=== PATIENT | male | born 1990 | race Caucasian/White ===

== ENCOUNTER 2023-12-15 15:23 | Emergency (ER) | payer OTHER ==
[~2023-12-15] VITALS: Ht 177.8 cm; Wt 76.4 kg
[~2023-12-15 15:23] MED LIST: ZOFRAN 4MG T4 MG/TAB PO
[2023-12-15 15:26] VITALS: TEMP 97.7
[2023-12-15 16:25] LABS: BASO % 0.5 % (0.0-2.0); EOS # 0.3 K/mm3 (0.0-0.7); EOS % 4.6 % (0.0-4.0); GRAN # 3.7 K/mm3 (1.4-6.5); GRAN % 63.7 % (42.2-75.2); HEMOGLOBIN 13.3 g/dl (13.5-18.0); LYMPH # 1.4 K/mm3 (1.2-3.4); LYMPH % 23.5 % (20.0-51.0); MEAN CELL VOLUME 85 fl (80.0-100.0); MEAN CORPUSCULAR HEMOGLOBIN 28 pg (27-31); MEAN CORPUSCULAR HGB CONC 33 g/dl (33.0-37.0); MEAN PLATELET VOLUME 10.1 fl (7.4-10.4); MONO # 0.4 K/mm3 (0.1-0.6); MONO % 7.2 % (1.7-9.3); PLATELET COUNT 232 K/mm3 (130-400); REDCELL DISTRIBUTION WIDTH-CV 13.3 % (11.5-14.5)
[2023-12-15 16:50] LABS: ALBUMIN 3.9 g/dL (3.5-5.0); BILIRUBIN,TOTAL 0.4 mg/dL (0.2-1.2); CALCIUM 9.6 mg/dL (8.4-10.2); CREATININE, serum 0.91 mg/dL (0.72-1.25); POTASSIUM 3.9 mEq/L (3.5-4.5); TOTAL PROTEIN 7.2 g/dl (6.2-8.1)
[2023-12-15] MEDS ORDERED: CLEOCIN HC150 MG/CAP PO (17:51)
[2023-12-15] MEDS ORDERED: Bacitracin Topical Oint 30 GM TUBE TOP ONE (18:00)
[2023-12-15 18:18] VITALS: BP 110/71; PULSE 58
[2023-12-18] MEDS ORDERED: BACTRIM DS 8001 TAB PO (11:01)
== END 2023-12-15 18:21 | disposition home or self-care (01) ==
LOC: COL.ER 15:23
PROVIDERS: Emergency Medicine
DX: L03.115 Cellulitis of right lower limb (principal); Z87.828 Personal history of other (healed) physical injury and trauma
CPT/HCPCS: J0737